=== PATIENT | female | born 1980 | race African-American/Black ===

== ENCOUNTER 2017-02-08 21:54 | Emergency (ER) | payer MEDICAID, OTHER ==
[~2017-02-08] VITALS: Ht 160 cm; Wt 83.0 kg
[~2017-02-08 21:54] MED LIST: CIPR500T4 PO; LORTA5 PO; PROT40TA PO; SUCR1S PO
[2017-02-08 21:57] VITALS: BP 172/111; PULSE 96; RESP 15; TEMP 98.9; O2SAT 98
[2017-02-08] MEDS ORDERED: AMOX500T PO (22:13)
[2017-02-08] MEDS ORDERED: DICL50TA3 PO (22:13)
[2017-02-08] MEDS ORDERED: ACETAMINOPHEN/HYDROcodone 325 MG/5 MG TAB PO ONE (22:15)
[2017-02-08] MEDS ORDERED: AMOXICILLIN (TRIHYDRATE) 500 MG CAP PO ONE (22:15)
--- NOTE | 2017-02-08 22:16 | PD ---
HPI Chief Complaint: Oral / Dental Pain or Problem Time Seen by Provider: 22:13 Travel History International Travel<30 days: No Contact w/Intl Traveler<30days: No Traveled to known affect area: No History of Present Illness HPI 36-year-old black female presents to emergency department with right lower mandible pain secondary to a toothache. She states pain radiates to her right ear. Its moderate but can be severe at times. Has pain with opening and closing her mouth. PFSH Past Medical History Narrative Medical Mandible fracture Blood Disorders: No Cancer: No Cardiovascular Problems: No Chemotherapy: No Diminished Hearing: No Endocrine: No Genitourinary: No Immune Disorder: No Musculoskeletal: No Neurologic: No Psychiatric: No Reproductive: No Respiratory: No Radiation Therapy: No Tetanus Vaccination: < 5 Years ?: Not LMP: 3 WEEKS AGO Past Surgical History Narrative Surgical ORIF mandible fracture Oral Surgery: Yes (jaw sx) Pacemaker: No Social History Alcohol Use: Yes (OCC) Tobacco Use: Yes (4 CIGARETTES/DAILY) Substance Use: No Allergies-Medications (Allergen,Severity, Reaction): Coded Allergies: No Known Allergies (Unverified , 02/08/17) Reported Meds & Prescriptions Reported Meds & Active Scripts Active Diclofenac Sodium DR (Diclofenac Sodium) 50 Mg Tabdr 50 Mg PO TID Amoxicillin 500 Mg Tab 1,000 Mg PO BID Cipro (Ciprofloxacin HCl) 500 Mg Tab 500 Mg PO BID 2 Days Protonix (Pantoprazole Sodium) 40 Mg Tab 40 Mg PO DAILY 30 Days Carafate 1 Gm/10 Ml Udc (Sucralfate) 1 Gm/10 Ml Susp 1 Gm PO TIDACHS Hydrocodone/Acetaminophen 5 mg/325 mg Acetaminophen 325/5 Hydrocodone Tab 1 Tab PO Q6H PRN Review of Systems Except as stated in HPI: all other systems reviewed are Neg General / Constitutional: No: Fever, Chills Eyes: No: Diploplia, Blurred Vision HENT: Positive: Dental Difficulties, Earache, No: Sore Throat, Gingival Bleeding Cardiovascular: No: Chest Pain or Discomfort, Palpitations Respiratory: No: Cough, Shortness of Breath Gastrointestinal: No: Nausea, Vomiting Physical Exam Narrative GENERAL: Well-developed, well-nourished in no acute distress. Nontoxic appearing. HEAD: Normocephalic, atraumatic. 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 EYES: Pupils equal round and reactive. Extraocular motions intact. No scleral icterus. No injection or drainage. ENT: TMs clear without erythema. The external auditory canals clear. Nose: clear . Posterior pharynx is pink and moist. No tonsillar edema or exudate. Uvula midline. Airway patent. Patient has a area of tenderness and dental carry in tooth #32. No facial cellulitis. No gross abscess. NECK: Trachea midline.Supple, nontender, moves head freely. No central bony tenderness or spasm. CARDIOVASCULAR: Regular rate and rhythm without murmurs, gallops, or rubs. RESPIRATORY: Clear to auscultation. Breath sounds equal bilaterally. No wheezes , rales, or rhonchi. GASTROINTESTINAL: Abdomen soft, non-tender, nondistended. No hepato-splenomegaly , or palpable masses. No guarding. EXTREMITIES: No clubbing, cyanosis, or edema. No joint tenderness, effusion, or edema noted. BACK: Nontender without deformity or crepitance. No flank tenderness. Data Data Last Documented VS Vital Signs Date Time Temp Pulse Resp B/P Pulse Ox O2 Delivery O2 Flow Rate FiO2 02/08/17 21:57 98.9 96 15 172/111 98 Room Air Orders Amoxicillin (Trimox) (02/08/17 22:15) Acetamin-Hydrocod 325-5 Mg ([place] 5-325 (02/08/17 22:15) MDM Medical Decision Making Medical Screen Exam Complete: Yes Emergency Medical Condition: Yes Medical Record Reviewed: Yes Differential Diagnosis MDM: Moderate Differential diagnoses: Dental abscess, dental caries, osteitis, cellulitis Narrative Course Patient given amoxicillin 500 and Lortab 5 milligram by mouth. This is dental caries, dentalgia Diagnosis Primary Impression: Dental caries Additional Impression: Dentalgia Patient Instructions: Narcotic given in the ED, General Instructions Additional Instructions: Rest. [place] gargles. [place] oil on cotton balls. Amoxicillin and diclofenac. follow-up with a dentist as soon as possible. And return to the ER if any problems. Med/Other Pt SpecificInfo: Prescription(s) given Scripts Diclofenac Sodium DR 50 Mg Tabdr50 Mg PO TID #21 TAB Prov:Michael Hernandez MD 02/08/17 Amoxicillin 500 Mg Tab1,000 Mg PO BID #40 TAB Prov:Michael Hernandez MD 02/08/17 Disposition: 01 DISCHARGE HOME Condition: Stable [place] Feb 08, 2017 22:16
[2017-02-08 22:31] VITALS: BP 145/88
== END 2017-02-08 22:45 | disposition home or self-care (01) ==
LOC: NEPK 21:54
DX: K02.9 Dental caries, unspecified (principal); F17.200 Nicotine dependence, unspecified, uncomplicated
CPT/HCPCS: 99282